=== PATIENT | female | born 1980 | race Caucasian/White ===

== ENCOUNTER 2020-10-26 19:30 | Emergency (ER) | payer BC ==
[2020-10-26] MEDS ORDERED: Ondansetron 4 MG Tab.DIS PO ONE (20:36)
--- NOTE | 2020-10-26 20:46 | EDM.PDOC ---
ED HPI GENERAL MEDICAL PROBLEM - General Chief Complaint: General Stated Complaint: SHORT OF BREATH, LIGHTHEADED Time Seen by Provider: 10/26/20 19:44 Source of Information: Reports: Patient History Limitations: Reports: No Limitations - History of Present Illness INITIAL COMMENTS - FREE TEXT/NARRATIVE: Patient presents to bring her son with croup symptoms but says she thinks she has covid and has been symptomatic for 10 days. A few days ago she had fever to 102.4, cough, mild dyspnea, nausea, achy. All mostly resolved now except the nausea. She has been mostly just at home the past 10 days. She would like to be tested for covid. general Pain Score (Numeric/FACES): 7 - Related Data Allergies Allergy/AdvReac Type Severity Reaction Status Date / Time amoxicillin Allergy Hives Verified 10/26/20 20:05 ceftriaxone [From Rocephin] Allergy Hives Verified 10/26/20 20:05 Penicillins Allergy Hives Verified 10/26/20 20:05 sertraline [From Zoloft] Allergy Hives Verified 10/26/20 20:05 Social & Family History - Tobacco Use Tobacco Use Status *Q: Never Tobacco User - Recreational Drug Use Recreational Drug Use: No ED ROS GENERAL - Review of Systems Review Of Systems: Comprehensive ROS is negative, except as noted in HPI. ED EXAM, GENERAL - Physical Exam Exam: See Below Exam Limited By: No Limitations General Appearance: Alert, WD/WN, No Apparent Distress Eye Exam: Bilateral Eye: EOMI, Normal Inspection, PERRL Ears: Normal External Exam, Hearing Grossly Normal Nose: Normal Inspection, No Blood Throat/Mouth: Normal Inspection, Normal Lips, Normal Voice, No Airway Compromise Head: Atraumatic, Normocephalic Neck: Normal Inspection, Full Range of Motion Respiratory/Chest: No Respiratory Distress, Lungs Clear, Normal Breath Sounds, No Accessory Muscle Use Cardiovascular: Regular Rate, Rhythm, No Murmur GI/Abdominal: Normal Bowel Sounds, Soft, Non-Tender, No Organomegaly, No Distention Back Exam: Normal Inspection, Full Range of Motion. No: CVA Tenderness (L), CVA Tenderness (R) Extremities: Normal Inspection, Normal Range of Motion Neurological: Alert, Oriented, Normal Cognition, No Motor/Sensory Deficits Psychiatric: Normal Affect, Normal Mood Skin Exam: Warm, Dry, Intact, Normal Color, No Rash Course - Vital Signs Last Recorded V/S: Last Vital Signs Temp 99 F 10/26/20 20:26 Pulse 96 10/26/20 20:26 Resp 20 10/26/20 20:26 BP 115/65 10/26/20 20:26 Pulse Ox 96 10/26/20 20:26 - Orders/Labs/Meds Meds: Medications Discontinued Medications Generic Name Dose Route Start Last Admin Trade Name Freq PRN Reason Stop Dose Admin Ondansetron HCl 4 mg 10/26/20 20:36 Ondansetron 4 Mg Tab.Dis PO 10/26/20 20:37 ONETIME ONE - Re-Assessments/Exams Free Text/Narrative Re-Assessment/Exam: 10/26/20 20:43 Covid 19 positive. Discussed findings and recommendations with patient. She is 10 days from symptom onset and most symptoms have improved significantly. She would like something for nausea though. For the covid I suggested some common OTC treatments such as Vit C, Zinc but advised contacting her PCP for further specific recommendations. We discussed quarantine and [facility] contacting her soon with more details and instructions. 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 Discharged to home in stable condition. Departure - Departure Time of Disposition: 20:40 Disposition: Home, Self-Care 01 Condition: Good Clinical Impression: COVID-19, Nausea - Discharge Information Referrals: Neeru Staley PA-C [Primary Care Provider] - Additional Instructions: Drink at least 8 cups of water daily. Quarantine at home until cleared by the [place] [facility]. Call your PCP tomorrow for additional recommendations. If worsening, go to clinic or ER as needed. Sepsis Event Note (ED) - Evaluation Sepsis Screening Result: Possible Sepsis Risk - Focused Exam Vital Signs: Vital Signs Temp Pulse Resp BP Pulse Ox 10/26/20 20:26 99 F 96 20 115/65 96 10/26/20 19:35 98.4 F 97 20 107/64 97
== END 2020-10-26 20:50 | disposition home or self-care (01) ==
LOC: KA.ED 19:30
DX: U07.1 COVID-19 (principal); R11.0 Nausea; Z88.0 Allergy status to penicillin; Z88.1 Allergy status to other antibiotic agents; Z88.8 Allergy status to other drugs, medicaments and biological substances
CPT/HCPCS: 99283; 99284; A9270-GY; U0002